=== PATIENT | male | born 1945 | race Caucasian/White ===

== ENCOUNTER 2020-01-10 17:57 | Inpatient (IN) | payer MEDICARE ==
[~2020-01-10] VITALS: Ht 175.3 cm; Wt 87.7 kg
--- NOTE | 2020-01-10 17:57 | NUR ---
BIBRA 60 FROM 4 SEASONS C/O SOB LOW 02 SAT AT 84% ON RA. PT IS AAOX2, NOTED MILD RESPIRATORY DISTRESS, HOOKED TO O2 AT 2LPM AND HOOKED TO ROGUER, KEPT RESTED AND COMFORTABLE. WILL CONTINUE TO MONITOR.
--- NOTE | 2020-01-10 18:03 | NUR ---
SEEN AND EXAMINED BY .
--- NOTE | 2020-01-10 18:05 | NUR ---
IV LINE ESTABLISHED BLOOD DRAWN AND SENT TO LAB.
--- NOTE | 2020-01-10 18:13 | NUR ---
EVENT TECHNICIAN AT BEDSIDE FOR XRAY.
[2020-01-10 18:15] LABS: BASOPHILS % (AUTO) 0.2 % (0.0-2.0); EOSINOPHILS % (AUTO) 0.2 % (0.0-6.0); HEMATOCRIT 38 % (39-51); HEMOGLOBIN 12.9 g/dL (13.5-17.5); LYMPHOCYTES # (AUTO) 1.3 /CMM (0.8-4.8); LYMPHOCYTES % (AUTO) 21.4 % (20.0-44.0); MEAN CORPUSCULAR HGB CONC 34 g/dl (31.0-36.0); MEAN CORPUSCULAR VOLUME 90 fL (80-96); MONOCYTES # (AUTO) 0.3 /CMM (0.1-1.30); NEUTROPHILS # (AUTO) 4.4 /CMM (1.8-8.9); NEUTROPHILS % (AUTO) 73.2 % (43.0-81.0); PLATELET COUNT (AUTO) 178 /CMM (150-450); WHITE BLOOD COUNT (AUTO) 6.1 K/uL (4.3-11.0)
[2020-01-10] MEDS ORDERED: IV NS 0.9% 1,000 ML BAG IV ONE (18:30)
[2020-01-10] MEDS ORDERED: PIPERACILLIN /TAZOBACTAM 3.375 G in IV D5W 50 ML IV ONE (18:30)
[2020-01-10] MEDS ORDERED: VANCOMYCIN 1 GM in IV D5W 250 ML IV ONE (18:30)
--- NOTE | 2020-01-10 18:36 | NUR ---
RAPID COVID SWAB DONE AND SENT TO LAB
[2020-01-10 18:39] LABS: ALANINE AMINOTRANSFERASE 27 U/L (12-78); ALBUMIN 2.8 g/dL (3.4-5.0); ALKALINE PHOSPHATASE 89 U/L (46-116); ASPARTATE AMINOTRANSFERASE 42 U/L (15-37); BILIRUBIN,DIRECT 0.2 mg/dL (0.0-0.2); BILIRUBIN,TOTAL 0.5 mg/dL (0.2-1.0); CALCIUM, SERUM 8.4 mg/dL (8.5-10.1); CARBON DIOXIDE 22 mmol/L (21-32); CHLORIDE 104 mmol/L (98-107); CREATININE 3.2 mg/dL (0.6-1.3); GLUCOSE 189 mg/dL (74-106); POTASSIUM 4.9 mmol/L (3.5-5.1); SODIUM SERUM 139 mmol/L (136-145); TOTAL PROTEIN, SERUM 7.8 g/dL (6.4-8.2)
[2020-01-10 18:41] LABS: UREA NITROGEN, BLOOD 89 mg/dL (7-18)
--- NOTE | 2020-01-10 18:56 | NUR ---
MOVE SHEET SUBMITTED AND CALLED FOR TELE BED.
--- NOTE | 2020-01-10 19:07 | NUR ---
RECEIVED COVID RESULT FROM LAB: POSITIVE FOR COVID
--- NOTE | 2020-01-10 19:11 | NUR ---
COVID SWAB PCR DONE AND SENT TO LAB
--- NOTE | 2020-01-10 19:15 | NUR ---
REPORT GIVEN TO BREANA ONEILL FOR RICKY
--- NOTE | 2020-01-10 19:21 | NUR ---
CALLED [facility]. COLLEGE SPECIALIST WAS PAGED.
--- NOTE | 2020-01-10 19:49 | NUR ---
PATIENT AWOKEN FROM SLEEP DUE TO VERBAL STIMULI FROM MYSELF. PATIENT IS AAOX2. PATIENT IS SOMNOLENT. PATIENT IS BREATHING EVENLY AND UNLABORED ON 3L OF NASAL CANNULA. PATIENT IS REPOSITIONED HIGHER UP IN THE BED. KEPT COMFORTABLE BY STRAIGHTENING OUT SHEETS BENEATH PATIENT. SIDE RAILS UP FOR SAFETY. CONNECTED TO THE MONITOR.
[2020-01-10] MEDS ORDERED: ONDANSETRON HCL/PF 4 MG/2 ML VIAL IVP PRN (20:00)
[2020-01-10] MEDS ORDERED: ALBUTEROL SULFATE 8 GM HFA.AER.AD NEB PRN (20:00)
[2020-01-10] MEDS ORDERED: ACETAMINOPHEN 650 MG/SUPP.RECT RC PRN (20:00)
[2020-01-10] MEDS ORDERED: AZITHROMYCIN 500 MG in IV D5W 250 ML IV SCH (20:00)
--- NOTE | 2020-01-10 20:00 | NUR ---
BED ASSIGNMENT 258
--- NOTE | 2020-01-10 20:04 | NUR ---
CALLED FOR REPORT, STAFF STATES THAT THEY WILL CALL BACK IN 5 MINUTES TO RECEIVE REPORT.
--- NOTE | 2020-01-10 20:24 | NUR ---
REPORT GIVEN TO VAUGHN ONEILL FOR RICKY.
--- NOTE | 2020-01-10 20:47 | NUR ---
PATIENT TAKEN TO ASSIGNED ROOM.
[2020-01-10 20:52] LABS: C-REACTIVE PROTEIN 12.2 mg/dL (0.0-0.9)
[2020-01-10] MEDS ORDERED: CEFTRIAXONE 1 G VIAL ONE (21:11)
[2020-01-10] MEDS: CEFTRIAXONE 1 G in IV D5W 50 ML IV SCH (21:12)
--- NOTE | 2020-01-10 22:00 | NUR ---
arboriculture teacher, admission. pt being admitted to icu covid, pneumonia and respiratory failure. pt awake, alert, poor concentration. oxygen 3l via nasal cannula. sat 98%. no acute distress noted, cardiac rehabilitation program director showing nsr, iv rt ac 16g saline lock. hob elevated, fc intact, urine draining, will continue to monitor vitals.
[2020-01-10] MEDS ORDERED: AZITHROMYCIN 500 MG VIAL ONE (22:20)
[2020-01-11] VITALS (25 sets, daily range): BP systolic 98–159; BP diastolic 51–110
--- NOTE | 2020-01-11 | NUR ---
AIR TRAFFIC SUPERVISOR PT SISTER CALLED UPDATE GIVEN
--- NOTE | 2020-01-11 01:45 | NUR ---
UNIVERSITY SERVICES PROGRAM ASSOCIATE. AFEBRILE. NO CHANGES. WILL CONTINUE TO MONITOR VITALS
--- NOTE | 2020-01-11 02:13 | NUR ---
BACTERIOLOGIST FOOD. PT IS SLEEPING. NO CHANGES. WILL CONTINUE TO MONITOR
--- NOTE | 2020-01-11 03:55 | NUR ---
RAMP SUPERVISOR. NO CHANGES. WILL CONTINUE TO MONITOR VITALS
[2020-01-11 04:57] LABS: BASOPHILS % (AUTO) 0.1 % (0.0-2.0); EOSINOPHILS % (AUTO) 1.4 % (0.0-6.0); HEMATOCRIT 37 % (39-51); HEMOGLOBIN 12.5 g/dL (13.5-17.5); LYMPHOCYTES # (AUTO) 1.4 /CMM (0.8-4.8); LYMPHOCYTES % (AUTO) 21.5 % (20.0-44.0); MEAN CORPUSCULAR HGB CONC 34 g/dl (31.0-36.0); MEAN CORPUSCULAR VOLUME 90 fL (80-96); MONOCYTES # (AUTO) 0.3 /CMM (0.1-1.30); MONOCYTES % (AUTO) 4.5 % (2.0-12.0); NEUTROPHILS # (AUTO) 4.9 /CMM (1.8-8.9); NEUTROPHILS % (AUTO) 72.5 % (43.0-81.0); PLATELET COUNT (AUTO) 169 /CMM (150-450); RED BLOOD CELL COUNT(AUTO) 4.14 MIL/uL (4.5-6.0); WHITE BLOOD COUNT (AUTO) 6.7 K/uL (4.3-11.0)
--- NOTE | 2020-01-11 05:00 | NUR ---
CRISIS CLINICIAN. AM CARE GIVEN. AFEBRILE. HOB ELEVATED, INDUSTRIAL CONVEYOR BELT REPAIRER SHOWING NSR. REMAINING SAME OXYGEN TOLERATED WELL. . SAT 98%. NO ACUTE DISTRESS NOTED. DURING SHIFT NO COMPLICATION NOTED. WILL CONTINUE TO MONITOR VITALS.
[2020-01-11 05:17] LABS: ALANINE AMINOTRANSFERASE 32 U/L (12-78); ALBUMIN 2.6 g/dL (3.4-5.0); ALKALINE PHOSPHATASE 91 U/L (46-116); ASPARTATE AMINOTRANSFERASE 50 U/L (15-37); BILIRUBIN,TOTAL 0.3 mg/dL (0.2-1.0); CALCIUM, SERUM 8.2 mg/dL (8.5-10.1); CARBON DIOXIDE 24 mmol/L (21-32); CHLORIDE 101 mmol/L (98-107); GLUCOSE 221 mg/dL (74-106); MAGNESIUM 2.9 mg/dL (1.8-2.4); PHOSPHORUS 2.9 mg/dL (2.5-4.9); POTASSIUM 4.9 mmol/L (3.5-5.1); SODIUM SERUM 135 mmol/L (136-145); TOTAL PROTEIN, SERUM 7.7 g/dL (6.4-8.2)
[2020-01-11 05:21] LABS: CHOLESTEROL 225 mg/dL (<200); HDL CHOLESTEROL 41 mg/dL (40-60); LDL 136 mg/dL (0-99); THYROID STIMULATING HORMONE 6.276 uIU/mL (0.358-3.74); TRIGLYCERIDES 324 mg/dL (30-150)
[2020-01-11 05:37] LABS: UREA NITROGEN, BLOOD 85 mg/dL (7-18)
--- NOTE | 2020-01-11 07:20 | NUR ---
RN INITIAL NOTES RECEIVED PT AWAKE, A/OX2. ON 02 VIA NC AT 3LPM. NO SOB NOTED. HOB ELEVATED. DENIES ANY PAIN. IV LINE IN PLACE. DAVIS IN PLACE. NO HEMATURIA NOTED. BLE ELEVATED. PT COMFORTABLE. CALL LIGHT WITHIN REACH. WILL MONITOR
[2020-01-11] MEDS ORDERED: MULT-447 PO (09:06)
[2020-01-11] MEDS ORDERED: BLOO-697 IN (09:06)
[2020-01-11] MEDS ORDERED: BISA10SU61 RC (09:06)
[2020-01-11] MEDS ORDERED: ACET325T53 PO (09:06)
[2020-01-11] MEDS ORDERED: MAGN400O6 PO (09:06)
[2020-01-11] MEDS ORDERED: NA P133E RC (09:06)
[2020-01-11] MEDS ORDERED: AMIN887L PO (09:06)
[2020-01-11] MEDS ORDERED: ZINC1CAP2 PO (09:06)
[2020-01-11] MEDS ORDERED: SENN-175 PO (09:06)
[2020-01-11] MEDS ORDERED: ACET-2605 PO (09:06)
[2020-01-11] MEDS ORDERED: ASCO500T20 PO (09:06)
[2020-01-11] MEDS: HEPARIN SODIUM, PORCINE 5000 UNITS/1 ML VIAL SQ SCH ×2 (09:21→20:50)
[2020-01-11] MEDS ORDERED: ACETAMINOPHEN 325 MG TABLET PO PRN (09:30)
[2020-01-11] MEDS: BLOOD SUGAR DIAGNOSTIC 1 EACH STRIP IN SCH ×2 (09:48→15:55)
--- NOTE | 2020-01-11 09:58 | NUR ---
RN NOTES REPORT GIVEN TO MAI SPAIN. TOOK OVER PT'S CARE
--- NOTE | 2020-01-11 10:00 | NUR ---
RECEIVED REPORTS FROM MAI GEE FOR CONTINUITY OF CARE. NO ACUTE DISTRESS NOTED AT THIS TIME. WILL CONTINUE TO MONITOR PATIENT.
[2020-01-11 13:17] LABS: IRON, SERUM 18 ug/dl (50-175); TOTAL IRON BINDING CAPACITY 201 ug/dl (250-450)
--- NOTE | 2020-01-11 13:17 | NUR ---
DR CURTIS WILL REVIEW HOME MEDS AND RESUME/HOLD NEEDED. INFORMED ABOUT LDL 136, WILL REVIEW LABS WITH POSSIBLY STARTING PATIENT ON STATINS. INFORMED TO CALL SON PER SON'S REQUEST (TANISHA: [phone]).
--- NOTE | 2020-01-11 13:25 | NUR ---
CONTACTED RADIOLOGY AND ULTRASOUND TO F/U WITH BILATERAL UE/LE VENOUS DOPPLER. BOTH DEPARTMENTS STATED THEY ARE NOT IN CHARGE OF THE VENOUS DOPPLER AND THAT CARDIOLOGY IS THE ONE THAT DOES IT. CONTACTED CARDIOLOGY DEPARTMENT X2 TO FOLLOW UP ON WHEN THEY WILL BE DOING THE DOPPLER, NO RESPONSE. WILL F/U AGAIN. US *[id number] RADIOLOGY *4069 CARDIOLOGY *[id number] Addendum: 01/11/20 at 1329 by LISA LYLES RN CONTACTED CARDIOLOGY AGAIN, NO RESPONSE, WILL F/U Addendum: 01/11/20 at 1343 by LISA LYLES RN CONTACTED CARDIOLOGY, NO RESPONSE, CONTACTED RAILWAY ENGINEER TO OVERHEAD PAGE UNIT, AWAITING CALL BACK Addendum: 01/11/20 at 1416 by LISA LYLES RN CARDIOLOGY DIDN'T PAGE UNIT, CONTACTED AGAIN, NO RESPONSE
--- NOTE | 2020-01-11 13:49 | NUR ---
HOLDING OFF ON DVT PUMP UNTIL DOPPLER COMPLETE AND RESULTED.
[2020-01-11] MEDS: CHOLECALCIFEROL 1,000 UNIT TABLET (VIT D3) PO SCH (15:00)
[2020-01-11] MEDS: ZINC SULFATE 220 MG CAPSULE PO SCH (15:00)
[2020-01-11] MEDS: ASCORBIC ACID 500 MG TABLET PO SCH (15:00)
--- NOTE | 2020-01-11 15:30 | NUR ---
RECEIVED OVER THE PHONE CONSENT FOR CONVALESCENT PLASMA FROM SON WITH SAVANNAH,MAI A WITNESS Addendum: 01/11/20 at 1604 by LISA LYLES RN HAD A CONVERSATION WITH SON AND INFORMED HIM THAT IT TAKES MINIMUM 24 HOURS FOR THE PLASMA TO ARRIVE D/T THE PLASMA ARRIVING FROM AN OUTSIDE SOURCE.
--- NOTE | 2020-01-11 16:09 | NUR ---
FAXED OVER FORM FOR CONVALESCENT PLASMA TO LAB
[2020-01-11 16:41] LABS: C-REACTIVE PROTEIN 12.9 mg/dL (0.0-0.9)
--- NOTE | 2020-01-11 17:30 | NUR ---
PATIENT WAS SENT OUT TO CT TO R/O CVA, BACK IN BED, NO SIGNS OF DISTRESS NOTED
--- NOTE | 2020-01-11 18:39 | NUR ---
UPDATED BRITTANY BURRELL) ON PATIENT'S STATUS. PER SON, HE STATED THAT PATIENT STARTED HAVING INCREASED CONFUSION TOWARDS THE END OF November, Addendum: 01/11/20 at 1850 by LISA LYLES RN SON IS REQUESTING NEURO CONSULT, WILL ENDORSE TO ONCOMING SHIFT
--- NOTE | 2020-01-11 18:51 | NUR ---
RN CLOSING NOTE: PATIENT REMAINS IN BED. NO SIGNS OF ACUTE DISTRESS NOTED AT THIS TIME. SR IN THE 60S NOTED ON BEDSIDE MONITOR. SAFETY MEASURES IMPLEMENTED, BED IN LOWEST POSITION, LOCKED, SIDE RAILS UP, CALL LIGHT WITHIN REACH. WILL ENDORSE TO ONCOMING SHIFT RN FOR CONTINUITY OF CARE.
--- NOTE | 2020-01-11 19:58 | NUR ---
RN OPENING NOTE RECEIVED PT IN BED. PT IS CONFUSED, ON 3 L VIA NC SATING 94%. PT ON MONITOR SHOWING SR AT 70s. NO SOB NOTED. PT HAS IV ON RIGHT AC PATENT AND FLUSHES WELL.PT HAVE DAVIS DRAINING YELLOW URINE. SAFETY MEASURES IN PLACE.
[2020-01-11] MEDS: CEFTRIAXONE 1 G in IV D5W 50 ML IV SCH (20:09)
[2020-01-11] MEDS: AZITHROMYCIN 500 MG in IV D5W 250 ML IV SCH (22:25)
[2020-01-12] VITALS (25 sets, daily range): BP systolic 92–147; BP diastolic 50–87
[2020-01-12 04:36] LABS: BASOPHILS % (AUTO) 0.2 % (0.0-2.0); EOSINOPHILS % (AUTO) 2.8 % (0.0-6.0); HEMATOCRIT 39 % (39-51); LYMPHOCYTES # (AUTO) 1.2 /CMM (0.8-4.8); LYMPHOCYTES % (AUTO) 17.1 % (20.0-44.0); MEAN CORPUSCULAR HGB CONC 34 g/dl (31.0-36.0); MEAN CORPUSCULAR VOLUME 90 fL (80-96); MONOCYTES # (AUTO) 0.3 /CMM (0.1-1.30); MONOCYTES % (AUTO) 4.4 % (2.0-12.0); NEUTROPHILS # (AUTO) 5.3 /CMM (1.8-8.9); NEUTROPHILS % (AUTO) 75.5 % (43.0-81.0); PLATELET COUNT (AUTO) 216 /CMM (150-450); RED BLOOD CELL COUNT(AUTO) 4.29 MIL/uL (4.5-6.0); WHITE BLOOD COUNT (AUTO) 7.1 K/uL (4.3-11.0)
[2020-01-12 04:55] LABS: ALANINE AMINOTRANSFERASE 59 U/L (12-78); ALBUMIN 2.6 g/dL (3.4-5.0); ALKALINE PHOSPHATASE 105 U/L (46-116); ASPARTATE AMINOTRANSFERASE 79 U/L (15-37); BILIRUBIN,TOTAL 0.4 mg/dL (0.2-1.0); CALCIUM, SERUM 8.4 mg/dL (8.5-10.1); CARBON DIOXIDE 25 mmol/L (21-32); CHLORIDE 104 mmol/L (98-107); CREATININE 2.5 mg/dL (0.6-1.3); GLUCOSE 181 mg/dL (74-106); MAGNESIUM 3.2 mg/dL (1.8-2.4); PHOSPHORUS 2.9 mg/dL (2.5-4.9); POTASSIUM 4.8 mmol/L (3.5-5.1); SODIUM SERUM 140 mmol/L (136-145); TOTAL PROTEIN, SERUM 8.1 g/dL (6.4-8.2)
--- NOTE | 2020-01-12 05:03 | NUR ---
RN NOTE RECEIVED COVID RESULT ( PCR) FROM ELIJAH CONCEPCION IS POSITIVE.
[2020-01-12 05:07] LABS: UREA NITROGEN, BLOOD 84 mg/dL (7-18)
[2020-01-12 05:34] LABS: CREATINE KINASE, TOTAL 227 U/L (39-308); THYROID STIMULATING HORMONE 6.966 uIU/mL (0.358-3.74)
[2020-01-12] MEDS ORDERED: IV NS 0.9% 250 ML IV PRN (06:00)
--- NOTE | 2020-01-12 07:20 | NUR ---
RN CLOSING NOTE PT REMAINED STABLE DURING MY SHIFT. REPORT GIVEN TO INCOMING SHIFT FOR RICKY.
[2020-01-12] MEDS: BLOOD SUGAR DIAGNOSTIC 1 EACH STRIP IN SCH ×2 (07:30→17:11)
--- NOTE | 2020-01-12 07:45 | NUR ---
RN OPENING NOTE: RECEIVED PATIENT IN BED THIS MORNING. PATIENT IS AAOX1. SATING WELL ON 3L/MIN VIA NC. NO SIGNS OF ACUTE DISTRESS NOTED AT THIS TIME. PATIENT IS SR IN THE 60S ON THE BEDSIDE MONITOR. FC DRAINING URINE. NPO STATUS AT THIS TIME. #18 LAC, C/D/I, FLUSHING WELL, NO SIGNS OF COMPLICATIONS NOTED. SAFETY MEASURES IMPLEMENTED, BED IN LOWEST POSITION, LOCKED, SIDE RAILS UP, CALL LIGHT WITHIN REACH. WILL CONTINUE TO MONITOR PATIENT FOR CHANGES.
[2020-01-12] MEDS: HEPARIN SODIUM, PORCINE 5000 UNITS/1 ML VIAL SQ SCH ×2 (08:15→20:09)
[2020-01-12] MEDS: ASCORBIC ACID 500 MG TABLET PO SCH (08:28)
[2020-01-12] MEDS: CHOLECALCIFEROL 1,000 UNIT TABLET (VIT D3) PO SCH (08:29)
[2020-01-12] MEDS: ZINC SULFATE 220 MG CAPSULE PO SCH (08:29)
--- NOTE | 2020-01-12 09:03 | NUR ---
SPOKE WITH SON (DONNA) THIS MORNING AND GAVE AN UPDATE ABOUT PATIENT. INFORMED SON AGAIN THAT IT TAKES MINIMUM 24 HOURS FOR CONVALESCENT PLASMA TO ARRIVE DUE TO COMING FROM AN OUTSIDE SOURCE.
--- NOTE | 2020-01-12 11:07 | NUR ---
TYPE AND SCREEN TAKEN BY LAB, AWAITING RESULTS
[2020-01-12] MEDS ORDERED: DEXAMETHASONE 4 MG TABLET PO SCH (11:30)
--- NOTE | 2020-01-12 13:18 | NUR ---
CONVALESCENT PLASMA INITIATED, WILL CONTINUE TO MONITOR PATIENT. Addendum: 01/12/20 at 1426 by LISA LYLES RN PLASMA TRANSFUSION COMPLETE. NO SIGNS OF ACUTE DISTRESS NOTED AT THIS TIME. WILL CONTINUE TO MONITOR PATIENT.
--- NOTE | 2020-01-12 13:39 | NUR ---
CONTACTED CARDIOLOGY X3, ULTRASOUND X2 TO F/U WITH PATIENT'S BUE/BLE VENOUS DOPPLER TO R/O DVT. NO RESPONSE. OVERHEAD PAGED CARDIOLOGY X2, STILL NO CALL BACK. WILL F/U.
--- NOTE | 2020-01-12 13:55 | NUR ---
PER CARDIOLOGY, BUE/BLE DOPPLER TO R/O DVT WAS CANCELLED D/T PATIENT BEING POSITIVE FOR COVID X2. INFORMED DR BROWN AND DR YUEN. ORDERS FROM DR. YUEN TO HOLD OFF ON DVT PUMP AND CONTINUE HEPARIN INJECTION SUBCUTANEOUSLY FOR DVT PROPHYLAXIS.
--- NOTE | 2020-01-12 15:41 | NUR ---
AFIB IN THE 40S NOTED ON THE MONITOR. EKG ORDERED. AWAITING RESULTS. Addendum: 01/12/20 at 1744 by LISA LYLES RN EKG RESULTS, CONTACTED DR BROWN. NNO. WILL CONTINUE TO MONITOR PATIENT.
--- NOTE | 2020-01-12 18:49 | NUR ---
NEURO REQUESTING MEDICAL RECORDS FROM [facility], WILL ENDORSE TO ONCOMING SHIFT TO OBTAIN CONSENT TO RELEASE RECORDS. FORM PLACED IN CHART.
--- NOTE | 2020-01-12 18:50 | NUR ---
RN CLOSING NOTE: PATIENT REMAINS IN BED. NO SIGNS OF ACUTE DISTRESS NOTED AT THIS TIME. SR IN THE 70S NOTED ON BEDSIDE MONITOR. SAFETY MEASURES IMPLEMENTED, BED IN LOWEST POSITION, LOCKED, SIDE RAILS UP, CALL LIGHT WITHIN REACH. WILL ENDORSE TO ONCOMING SHIFT RN FOR CONTINUITY OF CARE.
--- NOTE | 2020-01-12 19:00 | NUR ---
Received patient on isolation(Contact/droplet),awkae,alert,not in any respiratory distress,breathing regular and non labored with O2 via nasal cannula @ 3 L/min.Looks comfortable,denies any pain, knows name ,knows date of , follows simple commands,but disoriented to year,month and place.Comfort care done,needs attended. For transfer to tele once bed available.
[2020-01-12] MEDS: CEFTRIAXONE 1 G in IV D5W 50 ML IV SCH (20:01)
--- NOTE | 2020-01-12 21:00 | NUR ---
CALLED SON,(TANISHA KIM), OBTAINED CONSENT TO GET PATIENT'S RECORD FROM [facility].SON CONSENTED. 458 FAX REQUEST TO [facility].
[2020-01-12] MEDS: AZITHROMYCIN 500 MG in IV D5W 250 ML IV SCH (21:02)
--- NOTE | 2020-01-12 21:30 | NUR ---
PATIENT FOR TRANSFER TO TELE , REPORT GIVEN TO KIRSTEN ONEILL.
--- NOTE | 2020-01-12 22:00 | NUR ---
TRANSFERED TO # 204 ,TRANSPORTED VIA BED WITH PRECAUTION(MASK APPLIED OVER PATIENT).
--- NOTE | 2020-01-12 22:00 | NUR ---
only belonging patient has is eyeglasses,sent to tele with patient.Endorsed to RN ,not to apply SCD pending doppler studies of Lower extremities r/o DVT.
--- NOTE | 2020-01-12 22:15 | NUR ---
SNUFF PACKING MACHINE OPERATORGREEN BUILDING DESIGN SPECIALIST NOTES PATIENT TRANSFERRED FROM ICU IN STABLE CONDITION. CONTACT/DROPLET PRECAUTIONS IN PLACE FOR COVID POSITIVE RESULTS. PATIENT A/OX1-2. ON 3L NC; NO S/S OF ACUTE RESPIRATORY DISTRESS; BREATHING IS EVEN AND UNLABORED. IV PRESENT ON RIGHT AC, SIZE 18, INTACT & PATENT, HEP LOCKED. TELE MONITOR READING NSR. SAFETY MEASURES IN PLACE AND PATIENT'S NEEDS MET. BED LOCKED, HOB ELEVATED, SIDE RAILS X3, CALL LIGHT WITHIN REACH. WILL CONTINUE TO MONITOR.
[2020-01-13] VITALS (9 sets, daily range): BP systolic 120–153; BP diastolic 68–89
[2020-01-13] MEDS: BLOOD SUGAR DIAGNOSTIC 1 EACH STRIP IN SCH ×4 (06:54→23:09)
--- NOTE | 2020-01-13 07:10 | NUR ---
RN OPENING NOTES PATIENT A/OX1-2. ON 3L NC; NO S/S OF ACUTE RESPIRATORY DISTRESS; BREATHING IS EVEN AND UNLABORED. IV PRESENT ON RIGHT AC, SIZE 18, INTACT & PATENT, HEP LOCKED. TELE MONITOR READING NSR. SAFETY MEASURES IN PLACE. BED LOCKED, HOB ELEVATED, SIDE RAILS X3, CALL LIGHT WITHIN REACH. WILL CONTINUE TO MONITOR.
--- NOTE | 2020-01-13 07:17 | NUR ---
[facility] CLOS[facility] NOTES PATIENT AWAKE IN BED. A/OX1-2. ON 3L NC. NO S/S OF ACUTE RESPIRATORY DISTRESS; BREATHING IS EVEN AND UNLABORED. NO C/O PAIN AT THIS TIME. TELE MONITOR READING NSR WITH 1ST DEGREE AV BLOCK AND BBBS, HEART RATE 67. IV PRESENT ON RIGHT AC, SIZE 18, INTACT & PATENT, HEP LOCKED. CONTACT/DROPLET PRECAUTIONS IN PLACE FOR COVID POSITIVE RESULTS. SAFETY MEASURES IN PLACE AND PATIENT'S NEEDS MET. BED LOCKED, HOB ELEVATED, SIDE RAILS X3, CALL LIGHT WITHIN REACH. ENDORSED TO DAY SHIFT RN PLAN OF CARE.
[2020-01-13 07:57] LABS: BASOPHILS % (AUTO) 0.3 % (0.0-2.0); HEMATOCRIT 39 % (39-51); LYMPHOCYTES # (AUTO) 0.6 /CMM (0.8-4.8); LYMPHOCYTES % (AUTO) 16.1 % (20.0-44.0); MEAN CORPUSCULAR HGB CONC 34 g/dl (31.0-36.0); MEAN CORPUSCULAR VOLUME 90 fL (80-96); MONOCYTES # (AUTO) 0.3 /CMM (0.1-1.30); NEUTROPHILS # (AUTO) 2.7 /CMM (1.8-8.9); NEUTROPHILS % (AUTO) 75.6 % (43.0-81.0); PLATELET COUNT (AUTO) 254 /CMM (150-450); WHITE BLOOD COUNT (AUTO) 3.5 K/uL (4.3-11.0)
[2020-01-13 08:42] LABS: CALCIUM, SERUM 8.3 mg/dL (8.5-10.1); CARBON DIOXIDE 20 mmol/L (21-32); CHLORIDE 105 mmol/L (98-107); CREATININE 2.1 mg/dL (0.6-1.3); GLUCOSE 283 mg/dL (74-106); MAGNESIUM 3.3 mg/dL (1.8-2.4); PHOSPHORUS 3.3 mg/dL (2.5-4.9); POTASSIUM 4.7 mmol/L (3.5-5.1); SODIUM SERUM 140 mmol/L (136-145)
[2020-01-13] MEDS: ASCORBIC ACID 500 MG TABLET PO SCH (09:00)
[2020-01-13] MEDS: ZINC SULFATE 220 MG CAPSULE PO SCH ×3 (09:00→09:45)
[2020-01-13] MEDS: CHOLECALCIFEROL 1,000 UNIT TABLET (VIT D3) PO SCH ×3 (09:00→09:45)
[2020-01-13 09:02] LABS: UREA NITROGEN, BLOOD 87 mg/dL (7-18)
[2020-01-13 09:11] LABS: C-REACTIVE PROTEIN 9.4 mg/dL (0.0-0.9)
[2020-01-13] MEDS: DEXAMETHASONE SOD PHOSPHATE 4 MG/ML VIAL IV SCH (09:32)
[2020-01-13] MEDS: HEPARIN SODIUM, PORCINE 5000 UNITS/1 ML VIAL SQ SCH ×2 (09:36→21:04)
--- NOTE | 2020-01-13 10:07 | NUR ---
01/12/2020 4:35pm Lesley Hammonds, patient's daughter presented to [facility] waiting room. Per Lesley, she provided this SW with power of contract attorney. Lesley had written her name and address on POA form however the rest of the form was blank. Patient is not alert and orientedx4 to make wishes know. SW to follow up with Lesley.
--- NOTE | 2020-01-13 10:53 | NUR ---
This SW followed up with patient's daughter Lesley and provided education on Power of Policy Loan Calculator. This SW explained that patient is not at baseline and cannot make decisions for POA. Per Lesley, she understood that she and her brother Uvaldo will be called for approval for medical decisions. Lesley understood this information and will call this SW to picker machine operator POA forms at a later time.
--- NOTE | 2020-01-13 11:21 | NUR ---
RN NOTES RE-FAXED CONSENT FOR MEDICAL RECORDS TO [facility] WITH MS2 FAX AND NUMBER. . ALSO CALLED ICU TO ASK IF THEY RECEIVED ANY RECORDS VIA FAX AND NOTHING YET.
--- NOTE | 2020-01-13 12:41 | NUR ---
RN NOTES DAUGHTER CALLED , COMMUNICATED WITH PATIENT VIA FACETIME.
--- NOTE | 2020-01-13 13:07 | NUR ---
Rn Notes Patient seen and evaluated by Dr Bari Madrigal. Per MD order swallow eval . Request carried out.
--- NOTE | 2020-01-13 13:30 | NUR ---
RN NOTES PORTIA (SON) CALLED REQUESTING AN UPDATE ON HIS FATHER. ALSO REQUESTED A CALL DR. GIANCARLO VERMA. MADE AWARE.
--- NOTE | 2020-01-13 13:54 | NUR ---
Son Uvaldo called this SW requesting for Neurologist to speak to him. This SW informed him that this SW can find out who the oncologist is for this patient and give him a call back. Uvaldo was imminent to have the name of the consulting nuerologist, this SW was given this information by [place] [id number] bobbin winderMAI Valadez as no response from [place] [id number] nursing station. This SW to remain available for all needs regarding the patient.
--- NOTE | 2020-01-13 14:50 | NUR ---
RN NOTES Patient keeps removing his Tele monitor, refusing to place back in place and keeps pulling it out. Notified Dr.Rubin Duran made aware with orders to discontinue telemetry, order clarified and read back with MD. noted and carried out.
[2020-01-13] MEDS ORDERED: DEXTROSE 50%-WATER 50 ML DISP.SYRIN IV PRN (17:30)
[2020-01-13] MEDS: INSULIN REGULAR, HUMAN 100 UNIT/ML 3 ML VIAL SQ PRN ×2 (18:38→23:09)
--- NOTE | 2020-01-13 19:10 | NUR ---
MS/RN OPENING NOTES: RECEIVED PT REPORT FROM MAI DEL RIO. PT IS ON THE BED, NAKED, STABLE. A/OX1. CONFUSED. VERBALLY RESPONSIVE AND ABLE TO MAKE NEEDS KNOWN WHEN ASKED A QUESTION. HAS RASPY VOICE. PER DAY SHIFT RN, DR. GIANCARLO YUEN IS AWARE. NO C/O PAIN AT THIS TIME. NO S/S OF DISTRESS, NO SOB NOTED. BREATHING EVEN AND UNLABORED. ON 3L OF OXYGEN SATURATING WELL. DAVIS CATH NOTED DRAINING CLEAR YELLOW OUTPUT. PER DAY JESENIA RN, PT IS SCHEDULED FOR AN MRI TONIGHT. AND FAMILY WAS CONTACTED IF PT HAS ANY METALS OR PACEMAKERS IN THE BODY. PT'S FAMILY CALLED AND SAID NO. RADIOLOGY NOTIFIED AND WILL TUBE TRAILER FILLER THE PATIENT SOON. ON NPO STATUS AT THIS TIME. IV ON THE RIGHT AC #18G, SL. SAFETY MEASURES IN PLACE. BED IN LOW, LOCKED POSITION WITH SR UPX2. BED ALARM ON. CALL LIGHT WITHIN REACH. WILL CONTINUE TO MONITOR ACCORDINGLY.
[2020-01-13] MEDS: CEFTRIAXONE 1 G in IV D5W 50 ML IV SCH (20:02)
--- NOTE | 2020-01-13 20:21 | NUR ---
MS/RN NOTES: PT. PICKED UP BY 2 RADIOLOGY STAFF FOR MRI.
--- NOTE | 2020-01-13 20:59 | NUR ---
MS/RN NOTES: PATIENT CAME BACK FROM MRI, VIA GURNEY. IN STABLE CONDITION. WILL CONTINUE TO MONITOR ACCORDINGLY.
[2020-01-13] MEDS: AZITHROMYCIN 500 MG in IV D5W 250 ML IV SCH (22:00)
--- NOTE | 2020-01-14 00:07 | NUR ---
MS/RN NOTES: PT CONFUSED AND CONSTANTLY TRIES TO GET OUT OF BED. PULLED OUT IV LINE AND TRIES TO PULL OUT DAVIS. DR. ANNE AWARE AND ORDERED 1:1 SITTER.
[2020-01-14] MEDS: BLOOD SUGAR DIAGNOSTIC 1 EACH STRIP IN SCH ×3 (06:00→18:25)
--- NOTE | 2020-01-14 06:23 | NUR ---
MS/RN NOTES: ATTEMPTED TO REACH OUT THE INDIAN BLANKET WEAVER DOCTOR (DR. CURTIS) REGARDING PT'S BLOOD SUGAR FOR 6AM 349, IF IT'S OKAY TO GIVE THE REG INSULIN PER SLIDING SCALE EVEN IF PT IS NPO, OR TO HOLD COVERAGE FOR NOW. STILL AWAITING FOR RESPONSE. CHARGE NURSE AWARE, AND SAYS TO HOLD FOR NOW AND WAIT FOR THE DRMartina'S RESPONSE. WILL CONTINUE TO MONITOR ACCORDINGLY.
[2020-01-14 07:00] LABS: BASOPHILS % (AUTO) 0.1 % (0.0-2.0); HEMATOCRIT 41 % (39-51); LYMPHOCYTES # (AUTO) 0.5 /CMM (0.8-4.8); MEAN CORPUSCULAR HGB CONC 34 g/dl (31.0-36.0); MEAN CORPUSCULAR VOLUME 89 fL (80-96); MONOCYTES # (AUTO) 0.5 /CMM (0.1-1.30); MONOCYTES % (AUTO) 6.7 % (2.0-12.0); NEUTROPHILS # (AUTO) 5.8 /CMM (1.8-8.9); NEUTROPHILS % (AUTO) 86.2 % (43.0-81.0); PLATELET COUNT (AUTO) 329 /CMM (150-450); RED BLOOD CELL COUNT(AUTO) 4.61 MIL/uL (4.5-6.0); WHITE BLOOD COUNT (AUTO) 6.8 K/uL (4.3-11.0)
--- NOTE | 2020-01-14 07:16 | NUR ---
MS/RN CLOSING NOTES: PT REMAINS ON THE BED, STABLE. A/OX1. CONFUSED. VERBALLY RESPONSIVE AND ABLE TO MAKE NEEDS KNOWN WHEN ASKED A QUESTION. NO C/O PAIN AT THIS TIME. NO S/S OF DISTRESS, NO SOB NOTED. BREATHING EVEN AND UNLABORED. ON 3L OF OXYGEN SATURATING WELL. DAVIS CATH NOTED DRAINING CLEAR YELLOW OUTPUT. TOTAL OUTPUT IS 1800. NO BM BECAUSE PT HAS BEEN NPO. PT ABLE TO TURN AND REPOSITION HIMSELF ON THE BED. ABLE TO STAND WITH ASSIST. NPO STATUS KEPT THROUGHOUT THE SHIFT. BLOOD SUGAR CHECK FOR 6AM 349. ENDORSED TO DAY SHIFT RN TO FOLLOWUP WITH THE DRMartina IF THEY WANT TO GIVE INSULIN EVEN IF NPO. IV ON THE RIGHT HAND #22G, SL. SWALLOW EVAL SCHEDULED TODAY. SAFETY MEASURES IN PLACE. BED IN LOW, LOCKED POSITION WITH SR UPX2. BED ALARM ON. CALL LIGHT WITHIN REACH. ALL DUE MEDS GIVEN. ALL NURSING NEEDS MET AND RENDERED. KEPT PT CLEAN AND DRY AT ALL TIMES, KEPT WARM AND COMFORTABLE AT ALL TIMES. WILL ENDORSE TO DAY SHIFT FOR RICKY.
--- NOTE | 2020-01-14 07:17 | NUR ---
MS/RN OPENING NOTES RECEIVED PATIENT ON BED, AWAKE AND CONFUSED. PATIENT IN NO APPARENT RESPIRATORY DISTRESS NOTED. NO SIGN AND SYMPTOM OF PAIN AT THIS TIME. WILL CONTINUE TO MONITOR.
[2020-01-14 07:29] LABS: CALCIUM, SERUM 8.8 mg/dL (8.5-10.1); CARBON DIOXIDE 20 mmol/L (21-32); CHLORIDE 105 mmol/L (98-107); CREATININE 2.2 mg/dL (0.6-1.3); MAGNESIUM 3.2 mg/dL (1.8-2.4); PHOSPHORUS 2.3 mg/dL (2.5-4.9); POTASSIUM 4.6 mmol/L (3.5-5.1); SODIUM SERUM 140 mmol/L (136-145)
[2020-01-14 07:43] LABS: C-REACTIVE PROTEIN 4.2 mg/dL (0.0-0.9)
[2020-01-14 08:13] LABS: GLUCOSE 378 mg/dL (74-106); UREA NITROGEN, BLOOD 89 mg/dL (7-18)
--- NOTE | 2020-01-14 08:37 | NUR ---
MS/RN NOTES BLOOD GLUCOSE 378MG/DL MD IS AWARE. GIANCARLO YUEN ORDER NS 250 ML BULOS AND START NS 1L 80 ML/HR, GIVE THE INSULIN AND FLUID, NOTED AND CARRIED OUT. WILL CONTINUE TO MONITOR.
[2020-01-14] MEDS: IV NS 0.9% 1,000 ML IV SCH ×2 (08:58→19:10)
[2020-01-14] MEDS: CHOLECALCIFEROL 1,000 UNIT TABLET (VIT D3) PO SCH (08:59)
[2020-01-14] MEDS: ASCORBIC ACID 500 MG TABLET PO SCH (09:00)
[2020-01-14] MEDS: DEXAMETHASONE SOD PHOSPHATE 4 MG/ML VIAL IV SCH (09:00)
[2020-01-14] MEDS: ZINC SULFATE 220 MG CAPSULE PO SCH (09:00)
[2020-01-14] MEDS: HEPARIN SODIUM, PORCINE 5000 UNITS/1 ML VIAL SQ SCH ×2 (09:06→22:04)
[2020-01-14] MEDS: INSULIN REGULAR, HUMAN 100 UNIT/ML 3 ML VIAL SQ PRN ×2 (12:18→18:27)
[2020-01-14] MEDS ORDERED: K PHOS NEUTRAL 250 MG TABLET PO ONE (16:00)
[2020-01-14 20:00] VITALS: BP 146/82
--- NOTE | 2020-01-14 20:14 | NUR ---
MS/RN NOTES PATIENT IS ON BED. NO SIGN AND SYMPTOM OF PAIN NOTED.PATIENT IN NO APPARENT RESPIRATORY DISTRESS NOTED. SAFETY PRECAUTION IN PLACED. BED IN LOWEST POSITION AND LOCKED. CALL LIGHT WITHIN REACH. WILL ENDORSED TO MEDICAL STAFF ASSISTANT FOR RICKY.
--- NOTE | 2020-01-14 21:00 | NUR ---
rn placement: received report from day rn. covid ppositive, ppe utilized with n95 and face shield. isolation airborne/contact/droplet. pt in bed, awake, a/o x1, to self only, able to say if he's hungry or not.s/p convalescent plasma 01/11. pt on 3l oxygen via nc respirations even and unlabored. iv access on roght hand patent and flushing well, infusing with ns at 80ml/hr. salinas catheter in placed, bag draining via gravity. pt calm at the moment, appears comfortable, no facial grimace noted. vs taken and record by returns clerk. per report,. pt has episode of pulling out iv access and salinas, trying to get out of bed, almost fell last night, now pt has 1:1 sitter. safety precautions for fall initiated, call light in reach, will continue monitoring pt.
[2020-01-14] MEDS: AZITHROMYCIN 500 MG in IV D5W 250 ML IV SCH (22:04)
--- NOTE | 2020-01-14 23:56 | NUR ---
rn notes;: notified dr chung regarding pt's code sytatus, explaained that pt has polst attached to chart, written as FULL TREATMENT/FULL CODE, But accdg to family POA no intubation for pt. per md to call family again.
[2020-01-15] MEDS: BLOOD SUGAR DIAGNOSTIC 1 EACH STRIP IN SCH ×5 (00:08→23:44)
[2020-01-15] MEDS: INSULIN REGULAR, HUMAN 100 UNIT/ML 3 ML VIAL SQ PRN ×5 (00:10→23:51)
--- NOTE | 2020-01-15 00:10 | NUR ---
accu check 373: blood sugar check performed and result is 373, 10 units of insulin administered per sliding scale. pt on pureed diet. a/o x1-2, stated he's hungry, snack provided, rn assisted in feeding pt, aspiration precauton maintained. kept upright before during and 30minutes after eating.
--- NOTE | 2020-01-15 00:45 | NUR ---
rn notes/code status: per sociaal worker notes dated 01/13/2020 at 1053am "This SW followed up with patient's daughter Lesley and provided education on Power of Orchid Hand. This SW explained that patient is not at baseline and cannot make decisions for POA. Per Lesley, she understood that she and her brother Uvaldo will be called for approval for medical decisions. Lesley understood this information and will call this SW to brass pickler POA forms at a later time. " relayed to dr chung. as of now what we have in chart is pol stating full treatment/full code dated 12/16/2019. rn saleem velazquez, stated they have email in nursing office stating no mechanical ventilator/intubation for this patient.
--- NOTE | 2020-01-15 01:08 | NUR ---
RN NOTES: PER [facility] HOSPITALIST TONY MCINTOSH ON FULL CODE, TO FOLLOW UP IN AM IF FAMILY ABLE TO COMPLETE FILLING OUT AND FILING FOR POWER OF ACIDITY TESTER. PER MD JIMENEZ TO ORDER FULL CODE FOR NOW. ORDER READ BACK VERIFIED AND CARRIED OUT.
[2020-01-15] MEDS: IV NS 0.9% 1,000 ML IV SCH ×2 (06:25→19:48)
--- NOTE | 2020-01-15 07:04 | NUR ---
END OF SHIFT REPORT: PT REMAINS A/O X1 ON 3L OXYGEN VIA NC RESPIRATIONS EVEN AND UNLABORED. IV ACCESS REMAINS PATENT AND FLUSHING WELL, INFUSING WITH NS AT 80ML/HR, NO S/S OF IV INFILTRATION NOTED. DAVIS CATHETER REMAINS IN PLACED, BAG DRAINING VIA GRAVITY. WILL FOLLOW UP REGARDING CODE STATUS. PER REPORT FAMILY ALWAYS CALL AND RECORD TELEPHONE CONVERSATION, HOWEVER LAST NIGHT NO PHONE CALL RECEIVED FROM FAMILY. VS REMAINS STABLE, NEEDS ATTENDED. SAFETY PRECAUTIONS FOR FALL REMAIN ENGAGED, CALL LIGHT IN REACH, WILL ENDORSE TO DAY RN FOR CONTINUITY OF CARE.
--- NOTE | 2020-01-15 07:40 | NUR ---
RN NOTES RECEIVED PATIENT IN BED RESTING COMFORTABLY IN MODERATE HIGH BACK REST. ON 3L OXYGEN VIA NC.TOLERATING WELL, NO SIGNS OF DISTRESS NOTED AT THIS TIMES. IV ACCESS REMAINS PATENT AND FLUSHING WELL, INFUSING WITH NS AT 80ML/HR, NO S/S OF IV INFILTRATION NOTED, DAVIS CATHETER REMAINS IN PLACED, BAG DRAINING VIA GRAVITY, WILL FOLLOW UP REGARDING CODE STATUS. PER REPORT FAMILY ALWAYS CALL AND RECORD TELEPHONE CONVERSATION, SAFETY MEASURES IN PLACE, BED IN LOWEST LOCKED POSITION WITH SIDE RAILS UP X2. CALL LIGHT IN REACH, WILL CONTINUE TO MONITOR.
[2020-01-15 08:00] VITALS: BP 161/92
--- NOTE | 2020-01-15 08:00 | NUR ---
MS RN OPENING NOTES Received Patient resting in bed. A/O x 1 with episodes of confusion. VS stable with no acute distress. Breathing even and unlabored on room air with no respiratory distress. Denies pain. No signs and symptoms of pain. Aguiar Cath in place and patent with clear yellow output noted. 22g PIV on right hand clean, intact, patent and flushing well with NS infusing at 80ml/hr. Safety precautions in place. Bed locked and set to lowest position with side rails x 2 up. Sitter at bedside. Call light within reach. Will continue to monitor.
[2020-01-15 08:21] LABS: BASOPHILS % (AUTO) 0.2 % (0.0-2.0); HEMATOCRIT 41 % (39-51); HEMOGLOBIN 13.7 g/dL (13.5-17.5); LYMPHOCYTES # (AUTO) 0.5 /CMM (0.8-4.8); LYMPHOCYTES % (AUTO) 7.1 % (20.0-44.0); MEAN CORPUSCULAR HGB CONC 33 g/dl (31.0-36.0); MEAN CORPUSCULAR VOLUME 90 fL (80-96); MONOCYTES # (AUTO) 0.6 /CMM (0.1-1.30); MONOCYTES % (AUTO) 9.2 % (2.0-12.0); NEUTROPHILS # (AUTO) 5.6 /CMM (1.8-8.9); NEUTROPHILS % (AUTO) 83.5 % (43.0-81.0); PLATELET COUNT (AUTO) 345 /CMM (150-450); RED BLOOD CELL COUNT(AUTO) 4.54 MIL/uL (4.5-6.0); WHITE BLOOD COUNT (AUTO) 6.7 K/uL (4.3-11.0)
[2020-01-15] MEDS: DEXAMETHASONE SOD PHOSPHATE 4 MG/ML VIAL IV SCH (08:50)
[2020-01-15] MEDS: ASCORBIC ACID 500 MG TABLET PO SCH (08:50)
[2020-01-15] MEDS: ZINC SULFATE 220 MG CAPSULE PO SCH (08:51)
[2020-01-15] MEDS: CHOLECALCIFEROL 1,000 UNIT TABLET (VIT D3) PO SCH (08:51)
[2020-01-15] MEDS: HEPARIN SODIUM, PORCINE 5000 UNITS/1 ML VIAL SQ SCH ×2 (08:53→20:58)
[2020-01-15 09:17] LABS: CALCIUM, SERUM 8.3 mg/dL (8.5-10.1); CARBON DIOXIDE 25 mmol/L (21-32); CHLORIDE 110 mmol/L (98-107); CREATININE 1.9 mg/dL (0.6-1.3); GLUCOSE 264 mg/dL (74-106); PHOSPHORUS 2.9 mg/dL (2.5-4.9); POTASSIUM 4.4 mmol/L (3.5-5.1); SODIUM SERUM 145 mmol/L (136-145); UREA NITROGEN, BLOOD 71 mg/dL (7-18)
[2020-01-15 09:43] LABS: C-REACTIVE PROTEIN 1.8 mg/dL (0.0-0.9)
--- NOTE | 2020-01-15 15:00 | NUR ---
MS RN NOTES Spoke with daughter (Lesley) at this time regarding her wanting to FaceTime the Patient. Patient does not have iPhone. Per daughter, she was able to FaceTime the Patient while he was in ICU. ICU has iPad on unit. Notified Patient that ICU has the iPad access. Notified Director Of Food And Nutrition that daughter strongly urging to FaceTime with Patient. Per Director Of Food And Nutrition, may use iPad from ICU but must return MARY. Patient and daughter FaceTimed at this time.
--- NOTE | 2020-01-15 15:24 | NUR ---
2:30 pm tin worker met with patients daughter Lesley Hammonds in [facility]. Lesley Hammonds came to pickle processor patients POA forms she had provided this SW on 01/11. Lesley had written her name and address on POA form however the rest of the form was blank. Lesley also brought in a Will for the patient. This SW educated her that patient is confused and therefore unable to express her wishes or sign any legal documents including a Will or DPOA. Lesley understood and said she hoped to use these documents in the future when patient is at baseline and able to make these decisions.
[2020-01-15 16:00] VITALS: BP 147/98
--- NOTE | 2020-01-15 18:47 | NUR ---
MS RN CLOSING NOTES Patient resting in bed. A/O x 1 with episodes of confusion. VS stable with no acute distress. Breathing even and unlabored on room air with no respiratory distress. Denies pain. No signs and symptoms of pain. Aguiar Cath in place and patent with clear yellow output noted. 22g PIV on right hand clean, intact, patent and flushing well with NS infusing at 80ml/hr. Safety precautions in place. Bed locked and set to lowest position with side rails x 2 up. Sitter at bedside. Call light within reach. Per endorsement, family always call and records all telephone conversation. Spoke with family at 1500 regarding Facetiming with Patient. Will endorse plan of care to oncoming shift.
[2020-01-15 20:00] VITALS: BP 133/81
--- NOTE | 2020-01-15 20:00 | NUR ---
MS ONEILL OPENING NOTES RECEIVED PATIENT IN BED, AWAKE, A/O X1, CONFUSED, O2 @ 3LPM VIA NASAL CANNULA, UNLABORED BREATHING, NO SIGNS OF RESPIRATORY DISTRESS, RIGHT HAND #22G NS @ 80LPM, SIDE RAILS UP X 2, WILL CONTINUE TO MONITOR PATIENT. Addendum: 01/15/20 at 2108 by TRISTA VEGAS RN DAVIS CATH ATTACHED WITH YELLOWISH COLORED URINE.
[2020-01-15] MEDS: AZITHROMYCIN 250 MG TABLET PO SCH (21:53)
[2020-01-16 04:00] VITALS: BP 166/89
[2020-01-16] MEDS: BLOOD SUGAR DIAGNOSTIC 1 EACH STRIP IN SCH ×3 (05:09→17:12)
[2020-01-16] MEDS: INSULIN REGULAR, HUMAN 100 UNIT/ML 3 ML VIAL SQ PRN ×3 (05:21→17:12)
[2020-01-16] MEDS: IV NS 0.9% 1,000 ML IV SCH ×2 (05:49→17:16)
--- NOTE | 2020-01-16 06:51 | NUR ---
MS RN CLOSING NOTES ENDORSED PATIENT IN BED, AWAKE, A/O X1, CONFUSED, O2 @ 3LPM VIA NASAL CANNULA, NO SIGNS OF RESPIRATORY DISTRESS WHOLE SHIFT, RIGHT HAND #22G NS @ 80LPM INTACT, INFUSING WELL, NO REDNESS OR INFILTRATION NOTED, DAVIS CATH ATTACHED WITH YELLOWISH COLORED URINE, DUE MEDS GIVEN, NO COMPLAINS OF PAIN, SIDE RAILS UP X 2, BED IN LOWEST POSITION..
--- NOTE | 2020-01-16 07:30 | NUR ---
MS/RN OPENING NOTE Received patient resting in bed, A&O x 1, confused. Breathing even and non-labored on 3L oxygen via NC. No respiratory or cardiac distress noted. Denies any pain/discomfort at this time. IV access noted on R Hand # 22g, patent and intact, and running NS @ 80 ml/hr. Sensation from all peripheral extremities intact. Bed locked to its lowest position, side rails x 2 up, call light in hand. Will continue with current medical management.
[2020-01-16 07:57] LABS: BASOPHILS % (AUTO) 0.2 % (0.0-2.0); EOSINOPHILS % (AUTO) 0.2 % (0.0-6.0); HEMATOCRIT 43 % (39-51); HEMOGLOBIN 14.4 g/dL (13.5-17.5); LYMPHOCYTES # (AUTO) 0.7 /CMM (0.8-4.8); LYMPHOCYTES % (AUTO) 11.1 % (20.0-44.0); MEAN CORPUSCULAR HGB CONC 33 g/dl (31.0-36.0); MEAN CORPUSCULAR VOLUME 90 fL (80-96); MONOCYTES # (AUTO) 0.7 /CMM (0.1-1.30); MONOCYTES % (AUTO) 10.1 % (2.0-12.0); NEUTROPHILS # (AUTO) 5.2 /CMM (1.8-8.9); NEUTROPHILS % (AUTO) 78.4 % (43.0-81.0); PLATELET COUNT (AUTO) 335 /CMM (150-450); RED BLOOD CELL COUNT(AUTO) 4.79 MIL/uL (4.5-6.0); WHITE BLOOD COUNT (AUTO) 6.7 K/uL (4.3-11.0)
[2020-01-16 08:09] LABS: CALCIUM, SERUM 8.5 mg/dL (8.5-10.1); CARBON DIOXIDE 23 mmol/L (21-32); CHLORIDE 111 mmol/L (98-107); CREATININE 1.4 mg/dL (0.6-1.3); GLUCOSE 208 mg/dL (74-106); MAGNESIUM 2.5 mg/dL (1.8-2.4); PHOSPHORUS 2.2 mg/dL (2.5-4.9); POTASSIUM 4.2 mmol/L (3.5-5.1); SODIUM SERUM 145 mmol/L (136-145); UREA NITROGEN, BLOOD 48 mg/dL (7-18)
[2020-01-16] MEDS: ASCORBIC ACID 500 MG TABLET PO SCH (09:22)
[2020-01-16] MEDS: ZINC SULFATE 220 MG CAPSULE PO SCH (09:22)
[2020-01-16] MEDS: CHOLECALCIFEROL 1,000 UNIT TABLET (VIT D3) PO SCH (09:22)
[2020-01-16] MEDS: DEXAMETHASONE SOD PHOSPHATE 4 MG/ML VIAL IV SCH (09:23)
[2020-01-16] MEDS: HEPARIN SODIUM, PORCINE 5000 UNITS/1 ML VIAL SQ SCH ×2 (09:25→20:05)
[2020-01-16] MEDS: NEUTRA PHOS 1 POWD.PACKET PO SCH ×2 (11:28→17:30)
[2020-01-16] MEDS ORDERED: SENNOSIDES/DOCUSATE SODIUM 1 TAB TABLET PO PRN (12:30)
[2020-01-16] MEDS ORDERED: BISACODYL SUPP (10 MG) 10 MG/SUPP.RECT SUPP.RECT RC PRN (12:30)
--- NOTE | 2020-01-16 19:28 | NUR ---
MS RN: RECEIVED PATIENT Patient awake, follow simple command. Reoriented to place and time. Removing his NC, oxygen sat 95% on room air, tolerating well, breathing unlabored. IVF infusing. Contact/droplet precaution with Face shield. Maintained safety.
--- NOTE | 2020-01-16 19:30 | NUR ---
MS/RN CLOSING NOTE Patient resting in bed, A&O x 1. All needs are met and attended to. VSS, afebrile, no SOB noted. Breathing even and non-labored on RA. No respiratory or cardiac distress noted. Denies any pain/discomfort at this time. IV access noted on R Hand # 22g, patent and intact, and running NS @ 80 ml/hr. Sensation from all peripheral extremities intact. Fall precautions maintained. Will endorse to production supervisor off shift nurse.
[2020-01-16 20:00] VITALS: BP 143/86
[2020-01-16] MEDS: AZITHROMYCIN 250 MG TABLET PO SCH (20:04)
--- NOTE | 2020-01-16 20:05 | NUR ---
MS RN: ANTICOAGULANT Stable H/H ; Plt. No s/s of bleeding, no schedule procedure today. Heparin sq given, co-signed by MAI Alcazar.
[2020-01-16 20:30] VITALS: BP 143/86
[2020-01-16] MEDS: POLYETHYLENE GLYCOL 3350 17 GM POWD.PACK PO SCH (21:02)
[2020-01-16] MEDS ORDERED: Z GUARD REMEDY 2 OZ OINT TP PRN (23:30)
[2020-01-17] MEDS: BLOOD SUGAR DIAGNOSTIC 1 EACH STRIP IN SCH ×4 (00:18→17:15)
[2020-01-17] MEDS: INSULIN REGULAR, HUMAN 100 UNIT/ML 3 ML VIAL SQ PRN ×4 (00:18→17:14)
--- NOTE | 2020-01-17 06:49 | NUR ---
MS RN: END OF SHIFT REPORT Patient in bed, A/O x1. IVF infusing. On PO abx Afebrile overnight. No BM this shift, no reported BM in the last 7 days, Dulcolax AR given. Aguiar cath in place with good urine output. ID following, on Dexamethasone PO. Contact;Droplet precaution with Face shield. Maintained safety. Will endorse to yash RN. Addendum: 01/17/20 at 0650 by RAEANN NOVAK RN CLARIFICATION: On Dexamethasone IV.
[2020-01-17 07:03] LABS: BASOPHILS % (AUTO) 0.4 % (0.0-2.0); EOSINOPHILS % (AUTO) 0.9 % (0.0-6.0); HEMATOCRIT 46 % (39-51); HEMOGLOBIN 15.7 g/dL (13.5-17.5); LYMPHOCYTES # (AUTO) 1.1 /CMM (0.8-4.8); LYMPHOCYTES % (AUTO) 14.2 % (20.0-44.0); MEAN CORPUSCULAR HGB CONC 34 g/dl (31.0-36.0); MEAN CORPUSCULAR VOLUME 88 fL (80-96); MONOCYTES # (AUTO) 0.8 /CMM (0.1-1.30); MONOCYTES % (AUTO) 10.6 % (2.0-12.0); NEUTROPHILS # (AUTO) 5.5 /CMM (1.8-8.9); NEUTROPHILS % (AUTO) 73.9 % (43.0-81.0); PLATELET COUNT (AUTO) 388 /CMM (150-450); RED BLOOD CELL COUNT(AUTO) 5.24 MIL/uL (4.5-6.0); WHITE BLOOD COUNT (AUTO) 7.4 K/uL (4.3-11.0)
[2020-01-17 07:45] LABS: CALCIUM, SERUM 8.9 mg/dL (8.5-10.1); CREATININE 1.3 mg/dL (0.6-1.3); MAGNESIUM 2.1 mg/dL (1.8-2.4); PHOSPHORUS 3.2 mg/dL (2.5-4.9); POTASSIUM 4.7 mmol/L (3.5-5.1)
[2020-01-17] MEDS: DEXAMETHASONE SOD PHOSPHATE 4 MG/ML VIAL IV SCH (08:29)
[2020-01-17] MEDS: CHOLECALCIFEROL 1,000 UNIT TABLET (VIT D3) PO SCH (08:29)
[2020-01-17] MEDS: ASCORBIC ACID 500 MG TABLET PO SCH (08:29)
[2020-01-17] MEDS: ZINC SULFATE 220 MG CAPSULE PO SCH (08:29)
[2020-01-17] MEDS: HEPARIN SODIUM, PORCINE 5000 UNITS/1 ML VIAL SQ SCH ×2 (08:30→22:13)
[2020-01-17] MEDS: IV NS 0.9% 1,000 ML IV SCH (11:52)
--- NOTE | 2020-01-17 11:55 | NUR ---
rn notes 244 bs, coverage given
--- NOTE | 2020-01-17 15:04 | NUR ---
rn notes patient transferred to [facility]
[2020-01-17] MEDS: IV 1/2NS 1000 ML 1,000 ML IV PRN (17:07)
--- NOTE | 2020-01-17 17:45 | NUR ---
rn notes patient remains on room air, no sob noted, a/o x2 confused at times but can answer basic questions. ABle to take pureed and crushed medications, no gagging noted. L wrist 22 present with 1/2 NS @ 60 ml per hour running. Plan is to DC patient back to [facility] Saturday. Bed at the lowest setting, call light within reach, side rails up x2. Addendum: 01/17/20 at 1748 by JENARO HAGER RN Patient will not be going back to [facility] Saturday. ERROR
[2020-01-17] MEDS: POLYETHYLENE GLYCOL 3350 17 GM POWD.PACK PO SCH ×2 (22:00→22:12)
--- NOTE | 2020-01-17 22:21 | NUR ---
[employer] learning support teacher notes miralax not given, pt noted with loose stool. medication discarded. will continue to monitor.
[2020-01-18] MEDS: INSULIN REGULAR, HUMAN 100 UNIT/ML 3 ML VIAL SQ PRN ×3 (01:04→23:23)
[2020-01-18] MEDS: BLOOD SUGAR DIAGNOSTIC 1 EACH STRIP IN SCH ×5 (01:04→23:22)
--- NOTE | 2020-01-18 07:05 | NUR ---
ms rn notes pt refused insulin at this time. pt preferred when breakfast comes. will continue to monitor.
--- NOTE | 2020-01-18 07:41 | NUR ---
HOME HEALTH CARE PROVIDER OPENING NOTES RECEIVED PATIENT IN BED, AWAKE, A/O X1. PATIENT ON ROOM AIR; BREATHING IS EVEN AND UNLABORED; NO SOB NOTED. NO S/S OF PAIN SUCH FACIAL GRIMACING, MOANING OR GUARDING. L WRIST IV ACCESS PRESENT AND INTACT RUNNING 1/2 NS @ 60 MLS/HR. SAFETY PRECAUTIONS IN PLACE; BED IN LOW POSITION AND LOCKED, RAILS UP X2, CALL LIGHT WITHIN REACH. WILL CONTINUE TO MONITOR PATIENT.
[2020-01-18 07:43] LABS: BASOPHILS % (AUTO) 0.1 % (0.0-2.0); EOSINOPHILS % (AUTO) 1.3 % (0.0-6.0); HEMATOCRIT 47 % (39-51); HEMOGLOBIN 15.4 g/dL (13.5-17.5); LYMPHOCYTES # (AUTO) 1.2 /CMM (0.8-4.8); LYMPHOCYTES % (AUTO) 13.6 % (20.0-44.0); MEAN CORPUSCULAR HGB CONC 33 g/dl (31.0-36.0); MEAN CORPUSCULAR VOLUME 92 fL (80-96); MONOCYTES # (AUTO) 0.9 /CMM (0.1-1.30); MONOCYTES % (AUTO) 10.5 % (2.0-12.0); NEUTROPHILS # (AUTO) 6.5 /CMM (1.8-8.9); NEUTROPHILS % (AUTO) 74.5 % (43.0-81.0); PLATELET COUNT (AUTO) 342 /CMM (150-450); RED BLOOD CELL COUNT(AUTO) 5.08 MIL/uL (4.5-6.0); WHITE BLOOD COUNT (AUTO) 8.7 K/uL (4.3-11.0)
[2020-01-18 08:00] VITALS: BP 150/76
[2020-01-18 08:04] LABS: CALCIUM, SERUM 8.4 mg/dL (8.5-10.1); CARBON DIOXIDE 18 mmol/L (21-32); CHLORIDE 112 mmol/L (98-107); CREATININE 1.4 mg/dL (0.6-1.3); GLUCOSE 198 mg/dL (74-106); MAGNESIUM 2.6 mg/dL (1.8-2.4); PHOSPHORUS 2.5 mg/dL (2.5-4.9); POTASSIUM 5.1 mmol/L (3.5-5.1); SODIUM SERUM 143 mmol/L (136-145); UREA NITROGEN, BLOOD 41 mg/dL (7-18)
[2020-01-18] MEDS: ASCORBIC ACID 500 MG TABLET PO SCH (08:48)
[2020-01-18] MEDS: CHOLECALCIFEROL 1,000 UNIT TABLET (VIT D3) PO SCH (08:48)
[2020-01-18] MEDS: ZINC SULFATE 220 MG CAPSULE PO SCH (08:49)
[2020-01-18] MEDS: DEXAMETHASONE SOD PHOSPHATE 4 MG/ML VIAL IV SCH (08:50)
[2020-01-18] MEDS: HEPARIN SODIUM, PORCINE 5000 UNITS/1 ML VIAL SQ SCH (08:53)
--- NOTE | 2020-01-18 11:34 | NUR ---
MS RN NOTES COVID-19 TAKEN AND SENT TO THE LAB.
[2020-01-18] MEDS: IV 1/2NS 1000 ML 1,000 ML IV PRN (11:51)
--- NOTE | 2020-01-18 15:50 | NUR ---
MS RN NOTES PATIENTS O2 DESATURATED TO 86% ON ROOM AIR AT REST. ARRANGE FOR O2 FOR HOME.
--- NOTE | 2020-01-18 19:17 | NUR ---
DOCUMENT MANAGEMENT SPECIALIST CLOSING NOTES PATIENT IN BED, AWAKE, A/O X1. PATIENT ON ROOM AIR; BREATHING IS EVEN AND UNLABORED; NO SOB NOTED THROUGHOUT THE SHIFT. NO S/S OF PAIN SUCH FACIAL GRIMACING, MOANING OR GUARDING. L WRIST IV ACCESS PRESENT AND INTACT RUNNING 1/2 NS @ 60 MLS/HR. ALL NEEDS ATTENDED TO THROUGHOUT THE DAY. SAFETY PRECAUTIONS IN PLACE; BED IN LOW POSITION AND LOCKED, RAILS UP X2, CALL LIGHT WITHIN REACH. WILL ENDORSE TO BOWLING BALL MOLD ASSEMBLER NURSE.
--- NOTE | 2020-01-18 19:35 | NUR ---
MS RN OPENING NOTES RECEIVED PATIENT IN BED ALERT AND ORIENTED X 1. VERBALLY RESPONSIVE. BREATHING REGULAR AND UNLABORED ON ROOM AIR. LEFT WRIST IV LINE INTACT AND PATENT, INFUSING WELL WITH NO BLEEDING OR S/S OF INFILTRATION NOTED. NO S/S OF PAIN/DISCOMFORT SEEN AT THIS TIME. BED LOW AND LOCKED ON SEMI FOWLERS POSITION, CALL LIGHT IN REACH. BED ALARM ON. WILL CONTINUE TO MONITOR.
[2020-01-18 20:00] VITALS: BP 155/98
[2020-01-18] MEDS: POLYETHYLENE GLYCOL 3350 17 GM POWD.PACK PO SCH (21:40)
--- NOTE | 2020-01-19 | NUR ---
MS RN NOTES BS 200mg/dl, INSULIN COVERAGE NOT GIVEN DUE TO PATIENT REFUSING TO EAT. OFFERED AND ASSISTED ON FEEDING BUT SPITTING OUT FOOD. WILL CONTINUE TO MONITOR.
[2020-01-19] MEDS: INSULIN REGULAR, HUMAN 100 UNIT/ML 3 ML VIAL SQ PRN (06:19)
[2020-01-19] MEDS: BLOOD SUGAR DIAGNOSTIC 1 EACH STRIP IN SCH ×3 (06:20→18:15)
--- NOTE | 2020-01-19 06:50 | NUR ---
MS RN CLOSING NOTES PATIENT IN BED ALERT AND ORIENTED X 2. AFEBRILE WITH NO S/S OF DISTRESS OBSERVED. LEFT WRIST IV LINE PATENT AND INFUSING WELL. NO S/S OF PAIN/DISCOMFORT NOTED AT THIS TIME. BS 188mg/dl, 3UNITS REGULAR INSULIN GIVEN SQ. ASSISTED ON FEEDING SNACKS. BED LOW AND LOCKED ON SEMI FOWLERS POSITION, CALL LIGHT IN REACH. BED ALARM ON. WILL ENDORSE TO MORNING SHIFT FOR RICKY.
[2020-01-19 07:19] LABS: BASOPHILS % (AUTO) 0.4 % (0.0-2.0); EOSINOPHILS % (AUTO) 1.1 % (0.0-6.0); HEMATOCRIT 44 % (39-51); LYMPHOCYTES # (AUTO) 1.2 /CMM (0.8-4.8); LYMPHOCYTES % (AUTO) 12.4 % (20.0-44.0); MEAN CORPUSCULAR HGB CONC 34 g/dl (31.0-36.0); MEAN CORPUSCULAR VOLUME 89 fL (80-96); MONOCYTES # (AUTO) 0.9 /CMM (0.1-1.30); MONOCYTES % (AUTO) 8.7 % (2.0-12.0); NEUTROPHILS # (AUTO) 7.6 /CMM (1.8-8.9); NEUTROPHILS % (AUTO) 77.4 % (43.0-81.0); PLATELET COUNT (AUTO) 365 /CMM (150-450); RED BLOOD CELL COUNT(AUTO) 4.98 MIL/uL (4.5-6.0); WHITE BLOOD COUNT (AUTO) 9.8 K/uL (4.3-11.0)
--- NOTE | 2020-01-19 07:30 | NUR ---
RN OPENING NOTES RECEIVED PATIENT IN BED ALERT AND ORIENTED X 1. PT IS VERY CONFUSED. MUMBLES. PT KEEPS TAKING OUT HIS GOWN AND BLANKET. PT IS AFEBRILE WITH CARDIAC OR RESPIRATORY DISTRESS NOTED. NO SOB NOTED. SATURATING WELL ON ROOM AIR. IV ACCESS NOTED ON LEFT WRIST IV LINE PATENT AND INFUSING WELL. NO S/S OF PAIN/DISCOMFORT NOTED AT THIS TIME. SAFETY PRECAUTIONS IN PLACE. BED LOW AND LOCKED ON SEMI FOWLERS POSITION, CALL LIGHT IN REACH. BED ALARM ON. WILL CONT TO MONITOR.
[2020-01-19 07:43] LABS: CALCIUM, SERUM 8.8 mg/dL (8.5-10.1); CARBON DIOXIDE 22 mmol/L (21-32); CHLORIDE 112 mmol/L (98-107); CREATININE 1.6 mg/dL (0.6-1.3); GLUCOSE 254 mg/dL (74-106); MAGNESIUM 2.4 mg/dL (1.8-2.4); PHOSPHORUS 3.2 mg/dL (2.5-4.9); POTASSIUM 5.2 mmol/L (3.5-5.1); SODIUM SERUM 144 mmol/L (136-145); UREA NITROGEN, BLOOD 49 mg/dL (7-18)
[2020-01-19 08:00] VITALS: BP 106/76
[2020-01-19] MEDS: ASCORBIC ACID 500 MG TABLET PO SCH (08:15)
[2020-01-19] MEDS: DEXAMETHASONE SOD PHOSPHATE 4 MG/ML VIAL IV SCH (08:15)
[2020-01-19] MEDS: ZINC SULFATE 220 MG CAPSULE PO SCH (08:15)
[2020-01-19] MEDS: CHOLECALCIFEROL 1,000 UNIT TABLET (VIT D3) PO SCH (08:15)
[2020-01-19] MEDS ORDERED: DEXA6TAB6 PO (09:48)
[2020-01-19 13:27] LABS: EOSINOPHILS % (MANUAL) 1 % (0-4); LYMPHOCYTES % (MANUAL) 9 % (16-48); MONOCYTES % (MANUAL) 10 % (0-11.0); NEUTROPHILS % (MANUAL) 80 (42-76)
--- NOTE | 2020-01-19 14:00 | NUR ---
BODY CHECK/INVENTORY BODY CHECK DONE. PICTURES TAKEN. INVENTORY DONE. PT ONLY HAS GLASSES.
[2020-01-19 16:00] VITALS: BP 164/98
--- NOTE | 2020-01-19 17:00 | NUR ---
DISCHARGE TO SNF PER BRIT, PT WILL NOW BE DCD TO SNF INSTEAD OF HOME. P/U WILL BE AT 1830. [facility]
--- NOTE | 2020-01-19 17:30 | NUR ---
DISCHARGE REPORT GIVEN TO JESSE ONEILL AT THE [facility] [phone]
--- NOTE | 2020-01-19 18:40 | NUR ---
D/C TO SNF PT PICKED UP BY 2 HAND MODEL. IN STABLE CONDITION. ALERT AND ORIENTED X 1. MUMBLES. PT IS AFEBRILE WITH NO CARDIAC OR RESPIRATORY DISTRESS NOTED. NO SOB NOTED. SATURATING WELL ON ROOM AIR. IV ACCESS ON LEFT WRIST REMOVED. PT WILL NOT BE ON ANY IV AT THE SNF. NO BLEEDING NOTED. NO S/S OF PAIN/DISCOMFORT NOTED AT THIS TIME. PT LEFT IN STABLE CONDITION. PTS DAUGHTER IS ACTUALLY AT THE LOBBY SO THAT SHE CAN SEE PT BEFORE HE GOES TO THE SNF.
== END 2020-01-19 18:40 | DRG 871 ==
LOC: ER 18:00 → TELE2 19:48 → ICU 20:01 → TELE2 01-12 22:03 → MEDSG2 01-13 15:00 → ICU 01-17 21:04 → MEDSG2 01-17 21:11
PROVIDERS: ADMIT Registered Nurse; ATTEND Internal Medicine
PROC: 30233L1 Transfusion of Nonautologous Fresh Plasma into Peripheral Vein, Percutaneous Approach (ICD-10-PCS; principal; 2020-01-10)
DX: A41.89 Other specified sepsis (principal); J12.89 Other viral pneumonia; G92 Toxic encephalopathy; U07.1 COVID-19; J96.01 Acute respiratory failure with hypoxia; I50.33 Acute on chronic diastolic (congestive) heart failure; N17.0 Acute kidney failure with tubular necrosis; E44.0 Moderate protein-calorie malnutrition; I13.0 Hypertensive heart and chronic kidney disease with heart failure and stage 1 through stage 4 chronic kidney disease, or unspecified chronic kidney disease; R65.20 Severe sepsis without septic shock; E66.9 Obesity, unspecified; F03.90 Unspecified dementia, unspecified severity, without behavioral disturbance, psychotic disturbance, mood disturbance, and anxiety; F09 Unspecified mental disorder due to known physiological condition; N18.9 Chronic kidney disease, unspecified; D64.9 Anemia, unspecified; Z68.30 Body mass index [BMI] 30.0-30.9, adult; E11.22 Type 2 diabetes mellitus with diabetic chronic kidney disease; I25.10 Atherosclerotic heart disease of native coronary artery without angina pectoris; Z95.1 Presence of aortocoronary bypass graft; J45.909 Unspecified asthma, uncomplicated; E03.9 Hypothyroidism, unspecified; J32.9 Chronic sinusitis, unspecified
CPT/HCPCS: 36415; 70450-TC; 70551-TC; 71045-TC; 80048-TC; 80053-TC; 80061-TC; 80076-TC; 82550-TC; 82728-TC; 82962-TC; 83540-TC; 83605-TC; 83615-TC; 83735-TC; 83880; 84100-TC; 84439-TC; 84443-TC; 84484-TC; 85025-TC; 85378-TC; 85652-TC; 85730-TC; 86140-TC; 86850-TC; 87040-TC; 87081-TC; 92611-TC; 97530-TC; C9803-CS; G0378; J0456; J0696; J1100; J1644; J1815; J2543; J3370; J3490; J7030; J7050; J7060; J8540; P9017-BL; U0003-CS

== ENCOUNTER 2020-05-31 10:35 | Outpatient (CLI) | payer MEDICARE, OTHER ==
[~2020-05-31 10:35] MED LIST: ACET-2605 PO; ACET325T53 PO; AMIN887L PO; ASCO500T20 PO; BISA10SU61 RC; BLOO-697 IN; DEXA6TAB6 PO; MAGN400O6 PO; MULT-447 PO; NA P133E RC; SENN-175 PO; ZINC1CAP2 PO
[2020-05-31 12:25] LABS: BASOPHILS % (AUTO) 0.5 % (0.0-2.0); EOSINOPHILS % (AUTO) 5.7 % (0.0-6.0); HEMATOCRIT 38 % (39-51); HEMOGLOBIN 12.9 g/dL (13.5-17.5); LYMPHOCYTES # (AUTO) 1.4 /CMM (0.8-4.8); LYMPHOCYTES % (AUTO) 22.3 % (20.0-44.0); MEAN CORPUSCULAR HGB CONC 34 g/dl (31.0-36.0); MEAN CORPUSCULAR VOLUME 91 fL (80-96); MONOCYTES # (AUTO) 0.6 /CMM (0.1-1.30); NEUTROPHILS # (AUTO) 3.9 /CMM (1.8-8.9); NEUTROPHILS % (AUTO) 62.5 % (43.0-81.0); PLATELET COUNT (AUTO) 213 /CMM (150-450); RED BLOOD CELL COUNT(AUTO) 4.23 MIL/uL (4.5-6.0); WHITE BLOOD COUNT (AUTO) 6.2 K/uL (4.3-11.0)
[2020-05-31 12:38] LABS: ALANINE AMINOTRANSFERASE 24 U/L (12-78); ALBUMIN 3.7 g/dL (3.4-5.0); ALKALINE PHOSPHATASE 99 U/L (46-116); ASPARTATE AMINOTRANSFERASE 14 U/L (15-37); BILIRUBIN,TOTAL 0.3 mg/dL (0.2-1.0); CALCIUM, SERUM 9.6 mg/dL (8.5-10.1); CARBON DIOXIDE 29 mmol/L (21-32); CHLORIDE 106 mmol/L (98-107); CREATININE 2.2 mg/dL (0.6-1.3); GLUCOSE 117 mg/dL (74-106); MAGNESIUM 2.8 mg/dL (1.8-2.4); PHOSPHORUS 3.7 mg/dL (2.5-4.9); POTASSIUM 5.7 mmol/L (3.5-5.1); SODIUM SERUM 142 mmol/L (136-145); TOTAL PROTEIN, SERUM 7.9 g/dL (6.4-8.2); UREA NITROGEN, BLOOD 75 mg/dL (7-18)
[2020-05-31 12:47] LABS: COLOR,URINE YELLOW (YELLOW); PROTEIN,URINE TRACE mg/dl (NEGATIVE); UGLUCOSE NEGATIVE (NEGATIVE)
[2020-05-31 12:48] LABS: BILIRUBIN,URINE NEGATIVE (NEGATIVE); LEUKOCYTE ESTERASE ,URINE NEGATIVE (NEGATIVE); NITRITE, URINE NEGATIVE (NEGATIVE); UROBILINOGEN,URINE 0.2 EU/dL (0.2)
[2020-05-31 12:56] LABS: C-REACTIVE PROTEIN 0.2 mg/dL (0.0-0.9)
[2020-05-31 13:02] LABS: URINE TOTAL PROTEIN 31.1 mg/dL (0-11.9)
[2020-05-31 13:22] LABS: BACTERIA,URINE None seen /HPF (None Seen); RBC,URINE NONE SEEN /HPF (0-2); SQUAMOUS EPITHELIAL CELL,UR Rare /HPF (None Seen); WBC,URINE NONE SEEN /HPF (0-3)
[2020-06-01 09:07] LABS: *ANA ANTI-CENTROMERE B AB <0.2 AI (0.0-0.9); *ANA ANTI-DNA(DS) AB, QN 1 IU/mL (0-9); *ANA ANTI-JO-1 <0.2 AI (0.0-0.9); *ANA ANTICHROMATIN ANTIBODY <0.2 AI (0.0-0.9); *ANA RNP ANTIBODIES <0.2 AI (0.0-0.9); *ANA SJOGREN'S ANTI-SS-A <0.2 AI (0.0-0.9); *ANA SJOGREN'S ANTI-SS-B <0.2 AI (0.0-0.9); *ANAANTI-SCLERODERMA-70 AB <0.2 AI (0.0-0.9); *ANASMITH AB <0.2 AI (0.0-0.9)
[2020-06-01 11:07] LABS: COMPLEMENT C3, SERUM 150 mg/dL (82-167); COMPLEMENT C4, SERUM 36 mg/dL (12-38)
[2020-06-01 12:07] LABS: *SPE A/G RATIO 0.9 (0.7-1.7); *SPE ALBUMIN 3.4 g/dL (2.9-4.4); *SPE ALPHA-1-GLOBULIN 0.3 g/dL (0.0-0.4); *SPE ALPHA-2-GLOBULIN 1.2 g/dL (0.4-1.0); *SPE BETA GLOBULIN 1.2 g/dL (0.7-1.3); *SPE GLOBULIN, TOTAL 3.8 g/dL (2.2-3.9); *SPE M-SPIKE Not Observed g/dL (Not Observed); *SPEGAMMA GLOBULIN 1.1 g/dL (0.4-1.8)
== END 2020-05-31 23:59 | disposition home or self-care (01) ==
LOC: MSC 10:35
PROVIDERS: ATTEND Internal Medicine
DX: E11.22 Type 2 diabetes mellitus with diabetic chronic kidney disease (principal); I12.9 Hypertensive chronic kidney disease with stage 1 through stage 4 chronic kidney disease, or unspecified chronic kidney disease; N18.30 Chronic kidney disease, stage 3 unspecified; Z74.09 Other reduced mobility; Z98.890 Other specified postprocedural states
CPT/HCPCS: 76770; 80053; 81001; 82043; 83036; 83735; 84100; 84155 ×2; 84165; 85025; 85652; 86140; 86160; 86225; 86235 ×8; G0463; 36415

== ENCOUNTER 2020-06-28 11:26 | Outpatient (CLI) | payer MEDICARE, OTHER ==
[2020-06-28 13:23] LABS: ALANINE AMINOTRANSFERASE 27 U/L (12-78); ALBUMIN 3.5 g/dL (3.4-5.0); ALKALINE PHOSPHATASE 91 U/L (46-116); ASPARTATE AMINOTRANSFERASE 20 U/L (15-37); BILIRUBIN,TOTAL 0.4 mg/dL (0.2-1.0); CALCIUM, SERUM 9.4 mg/dL (8.5-10.1); CREATININE 1.9 mg/dL (0.6-1.3); GLUCOSE 104 mg/dL (74-106); MAGNESIUM 2.1 mg/dL (1.8-2.4); PHOSPHORUS 3.4 mg/dL (2.5-4.9); TOTAL PROTEIN, SERUM 7.1 g/dL (6.4-8.2); UREA NITROGEN, BLOOD 43 mg/dL (7-18)
[2020-06-28 14:03] LABS: CARBON DIOXIDE 30 mmol/L (21-32); CHLORIDE 105 mmol/L (98-107); POTASSIUM 5.2 mmol/L (3.5-5.1); SODIUM SERUM 140 mmol/L (136-145)
[2020-06-30 16:23] LABS: BILIRUBIN,URINE NEGATIVE (NEGATIVE); COLOR,URINE YELLOW (YELLOW); LEUKOCYTE ESTERASE ,URINE NEGATIVE (NEGATIVE); NITRITE, URINE NEGATIVE (NEGATIVE); PH,URINE 6.5 (5.0-8.0); PROTEIN,URINE TRACE mg/dl (NEGATIVE); UGLUCOSE NEGATIVE (NEGATIVE); UROBILINOGEN,URINE 0.2 EU/dL (0.2)
[2020-06-30 17:06] LABS: BACTERIA,URINE None seen /HPF (None Seen); MUCUS,URINE Few /LPF (None Seen); SQUAMOUS EPITHELIAL CELL,UR 0-2 /HPF (None Seen); WBC,URINE 0-2 /HPF (0-3)
== END 2020-06-28 23:59 | disposition home or self-care (01) ==
LOC: MSC 11:26
PROVIDERS: ATTEND Internal Medicine
DX: E11.22 Type 2 diabetes mellitus with diabetic chronic kidney disease (principal); I12.9 Hypertensive chronic kidney disease with stage 1 through stage 4 chronic kidney disease, or unspecified chronic kidney disease; N18.30 Chronic kidney disease, stage 3 unspecified; Z98.890 Other specified postprocedural states; E87.5 Hyperkalemia; I87.2 Venous insufficiency (chronic) (peripheral); Z74.09 Other reduced mobility; G95.9 Disease of spinal cord, unspecified; Z79.52 Long term (current) use of systemic steroids; Z79.1 Long term (current) use of non-steroidal anti-inflammatories (NSAID)
CPT/HCPCS: 36415; 80053; 83735; 83883; 84100; G0463

== ENCOUNTER → 2020-07-14 | Outpatient (CLI) | payer MEDICARE, OTHER | END | disposition home or self-care (01) | LOC: MSC 11:30 | PROVIDERS: ATTEND Internal Medicine | DX: E11.22 Type 2 diabetes mellitus with diabetic chronic kidney disease (principal); I12.9 Hypertensive chronic kidney disease with stage 1 through stage 4 chronic kidney disease, or unspecified chronic kidney disease; N18.30 Chronic kidney disease, stage 3 unspecified; C61 Malignant neoplasm of prostate; I87.2 Venous insufficiency (chronic) (peripheral); M48.9 Spondylopathy, unspecified; E87.5 Hyperkalemia; Z98.41 Cataract extraction status, right eye; Z79.899 Other long term (current) drug therapy; I25.10 Atherosclerotic heart disease of native coronary artery without angina pectoris ==